=== PATIENT | female | born 1935 | race Caucasian/White ===

== ENCOUNTER → 2023-08-12 07:59 | Outpatient (REF) | payer MEDICARE, BC, SELFPAY | LOC: DHCBC/DCA 07:59 | PROVIDERS: ATTENDING PHYSICIAN Internal Medicine Cardiovascular Disease; FAMILY PHYSICIAN Family Medicine | DX: R06.09 Other forms of dyspnea (principal); I50.32 Chronic diastolic (congestive) heart failure | CPT/HCPCS: 78452; 93017; A9500; J2785 ==

== ENCOUNTER → 2023-10-14 11:57 | Outpatient (REF) | payer MEDICARE, BC, SELFPAY | LOC: RCS 11:57 | PROVIDERS: ATTENDING PHYSICIAN Internal Medicine Cardiovascular Disease; FAMILY PHYSICIAN Family Medicine | DX: R06.09 Other forms of dyspnea (principal); I50.32 Chronic diastolic (congestive) heart failure | CPT/HCPCS: 93306 ==

== ENCOUNTER 2025-03-02 13:43 | Emergency (ER) | payer MEDICARE, BC, SELFPAY ==
[2025-03-02 13:44] VITALS: BP 175/96
[2025-03-02 15:41] VITALS: BMI 34.3
[2025-03-02 15:42] VITALS: BP 163/61
[2025-03-02 16:00] VITALS: BP 149/71
[2025-03-02 16:39] LABS: ALT (SGPT) 140 U/L (0-35); AST (SGOT) 50 U/L (14-36); Albumin 4.1 g/dl (3.5-5.0); Alkaline Phosphatase 186 U/L (38-126); Blood Urea Nitrogen 26 mg/dl (7-17); Calcium 10.3 mg/dl (8.4-10.2); Carbon Dioxide 26 mmol/L (22-30); Chloride 100 mmol/L (98-107); Estimated Creatinine Clearance 36 ml/min; Glucose 152 mg/dl (70-99); Potassium 4.8 mmol/L (3.5-5.1); Sodium 135 mmol/L (135-145); Total Protein 7.2 g/dl (6.3-8.2); eGFR > 60.00
[2025-03-02 16:48] LABS: Troponin I 0.016 ng/ml
[2025-03-02 17:00] VITALS: BP 134/72
[2025-03-02 17:10] LABS: Hematocrit 39.4 % (37.0-47.0); Hemoglobin 12.5 g/dL (12.0-16.0); Mean Corp Hgb Conc. 31.7 g/dL (33.0-37.0); Mean Corpuscular Volume 85.8 fL (81.0-99.0); Platelet Count 329 10^3/uL (130-400)
[2025-03-02 19:32] LABS: Nucleated Red Blood Cells % 0 %
[2025-03-02 19:33] LABS: Anisocytosis 1+; Hypochromasia 1+; Ovalocytes 1+; Poikilocytosis 1+
[2025-03-02 19:41] VITALS: BP 139/56
[2025-03-02] MEDS: LASIX 40 MG IV (19:45)
[2025-03-02 20:00] VITALS: BP 104/55
--- NOTE | 2025-03-02 20:03 | ED.GENMED ---
History of Present Illness
General
Chief Complaint: Swelling
Source: patient and family
Time Seen by Provider: 03/02/25 15:31
History of Present Illness
History of Present Illness:
Note:
CHIEF COMPLAINT(S)
Swelling of the legs and chest discomfort.
HISTORY OF PRESENT ILLNESS
The patient is an 89-year-old female with a history of hypertension and suspected heart failure presenting with swelling in bilateral legs right greater than left. She also admits to a brief sharp chest pain that only lasted seconds and resolved
last night. The leg swelling began approximately one month ago and has been progressively worsening. The patient reports significant difficulty walking due to the swelling and shortness of breath. The chest discomfort occurs at night, lasting until
she changes position, and is described as being on the right side. The patient reports that the discomfort improves when she elevates herself, suggesting positional relief. She experiences mild dyspnea, particularly on exertion, and finds it
difficult to breathe lying completely on her right side. She has been on amlodipine for hypertension management, which may be contributing to the leg swelling.
PAST MEDICAL AND SURGICAL HISTORY
History of severe hypertension and suspected heart failure. Recent dental procedure with the extraction of a tooth.
CHRONIC MEDICAL CONDITIONS SIGNIFICANTLY AFFECTING CARE
Hypertension, suspected heart failure.
SOCIAL DETERMINANTS AFFECTING HEALTH
The patient lives alone which may affect mobility and ability to seek prompt medical care.
MEDICATIONS
The patient is currently on amlodipine and furosemide (Lasix 40 mg). She reports taking Zithromax (azithromycin) recently for a dental issue. Additionally, she has started new medications for geographic atrophy, including Izerv and another
medication called Ilea.
REVIEW OF SYSTEMS
- Respiratory System: Reports dyspnea, particularly on exertion.
- Cardiovascular System: Intermittent chest discomfort, leg swelling primarily on the right side.
- Musculoskeletal System: Difficulty walking due to swelling in the leg.
PHYSICAL EXAM
General: Alert, appears in no acute distress.
Skin: Warm, dry.
Head: Normocephalic, atraumatic.
Neck: Supple, trachea midline.
Eyes, Ears, Nose, and Throat: Oral mucosa moist.
Cardiovascular: Normal peripheral perfusion, no edema noted on examination, notable swelling of the right leg slightly worse than the left.
Respiratory: Respirations are non-labored.
Gastrointestinal: Abdomen nondistended.
Back: Normal range of motion, normal alignment.
Musculoskeletal: Normal range of motion, normal strength; significant swelling in the right leg.
Neurological: Alert and oriented to person, place, time, and situation, no focal neurological deficit observed.
Psychiatric: Cooperative, appropriate mood and affect.
PLAN
1. Perform a chest X-ray to evaluate cardiac and pulmonary status.
2. Conduct an ultrasound of the legs to assess for possible deep vein thrombosis.
3. Obtain laboratory studies, including a BNP to assess for heart failure.
4. Review old medical records to compare previous blood pressure readings and assess the progression of the heart condition.
DIFFERENTIAL DIAGNOSIS
The Differential Diagnosis includes, in no particular order and is not limited to:
1. Congestive heart failure
2. Deep vein thrombosis
3. Pulmonary embolism
4. Peripheral edema due to medications (amlodipine)
5. Chronic venous insufficiency
6. Pneumonia leading to pleuritic chest pain
7. Myocardial ischemia
8. Chronic obstructive pulmonary disease exacerbation
9. Angina pectoris
10. Hypertensive heart disease
CARE-UPDATE
03/02/25 - 19:28
The patients recent examination showed no fluid in the lungs, and BNP levels are less than 500, indicating no immediate heart failure concern. Ultrasound results showed no blood clots, although Bakers cysts are present behind the knees. The initial
heart enzyme test was normal, and a repeat troponin is pending, with an expected normal result. IV Lasix will be administered to help with fluid management, and amlodipine is to be held for about a week to monitor if it contributes to leg swelling.
Kidney function and potassium levels appear normal. The patient will be discharged if the repeat enzyme test is normal, with a follow-up arranged with Dr. Oseguera or Dr. Senatoriali to discuss ongoing management of amlodipine and Lasix treatment.
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
EKG
My independent EKG interpretation is:
- Heart Rate: 102 bpm
- Rhythm: Sinus
- [place]: Normal
- Abnormality: Right bundle branch block
- Abnormality: Non-specific ST-T changes
Disposition:
SUMMARY OF ENCOUNTER
The 89-year-old female patient presented to the emergency department with lower extremity edema. During her visit, a comprehensive evaluation was conducted, including laboratory tests and imaging. The blood work revealed slightly elevated BUN levels
at 26, glucose at 152, with AST and ALT levels at 50 and 140, respectively. The BNP level was reported as negative at 45, and the troponin level was negative at 0.016. Imaging, including an ultrasound of the lower extremities, showed no deep vein
thrombosis, and a chest X-ray confirmed no pulmonary edema. Considering the absence of overt heart failure, the patients condition was assessed as stable for discharge. The management plan included holding the patients amlodipine to evaluate its
potential contribution to the edematous symptoms. An extra dose of intravenous furosemide (Lasix) was administered to manage fluid overload.
DISPOSITION
Discharge
ASSESSMENT
The patients lower extremity edema is likely related to medication-induced peripheral edema from amlodipine, as there is no evidence of heart failure, DVT, or pulmonary complications.
EMERGENCY TREATMENTS ADMINISTERED
An extra dose of intravenous furosemide (Lasix) was administered.
PLAN
The plan includes discontinuing amlodipine temporarily to observe if it resolves the edema, advising follow-up with a blood bank supervisor or primary care physician, referring the patient to a heart failure follow-up hotline, and ensuring the patients
symptoms are managed effectively with diuretics.
INDEPENDENT REVIEW OF LABS AND INTERPRETATION OF TESTS
- My independent review of BMP shows elevated BUN at 26, normal creatinine at 0.9, and elevated glucose at 152.
- My independent review of LFTs indicates AST at 50 and ALT at 140.
- My independent review of BNP indicates a negative result at 45, suggesting no immediate heart failure concern.
- My independent review of troponin shows a negative result at 0.016.
- My independent ultrasound of the lower extremities indicates no deep vein thrombosis.
- My independent chest X-ray interpretation shows no pulmonary edema.
MEDICATION RECONCILIATION
A temporary hold on amlodipine and an additional dose of intravenous furosemide (Lasix) were administered.
MEDICAL DECISION MAKING
1. Number and Complexity of Problems Addressed: Chronic conditions affecting care: Hypertension, suspected heart failure. Differential Diagnoses considered include congestive heart failure, deep vein thrombosis, pulmonary embolism, peripheral edema
due to medications, chronic venous insufficiency, pneumonia, myocardial ischemia, chronic obstructive pulmonary disease exacerbation, angina pectoris, and hypertensive heart disease.
2. Data:
- Category 1:
- My independent review of EKG shows a heart rate of 102 bpm, sinus rhythm, normal axis, right bundle branch block, and non-specific ST-T changes.
- My independent review of laboratory tests: BMP, LFT, BNP, troponin.
- My independent review of imaging: Ultrasound of the lower extremities and chest X-ray.
- Category 3: Discussion of management with cardiology regarding the potential contribution of amlodipine to peripheral edema and subsequent temporary discontinuation.
3. Risk: Prescription medication was prescribed for temporary hold and adjustment in medication to manage symptoms. Care significantly affected by social determinants of health, as the patient lives alone, which may impact her mobility and ability
to access care promptly. Consideration of Admission/Observation: Escalation of care including admission/observation was considered given the complexity and risk of the patients presenting complaint, exam findings, and underlying comorbidities.
However, ultimately, I feel the patient is safe for outpatient management with close follow-up. Reasoning: Work-up reassuring, does not reveal any acute life/organ-threatening processes, patients symptoms well-controlled upon reevaluation,
reexamination reassuring, vitals are stable, patient agreeable with discharge, reliable for follow-up.
DIAGNOSIS
- Peripheral edema, drug-induced (ICD-10: T50.905A)
- Hypertension (ICD-10: I10)
Past History
Past History
ED Past Medical History: HTN, Hypercholesterolemia and NIDDM
ED Past Surgical History: Appendectomy
Social History
Tobacco: Non-smoker
Alcohol: None
Phy Exam
Physical Exam
Physical Exam:
.
Course
Orders/Labs/Results
Orders:
Orders
03/02/25 13:47
Electrocardiogram (*1) Urgent
Reason for Study: Chest Pain
EKG- Treatment ONCE
03/02/25 16:01
US Periph Venous LOWER Ext Franck Urgent
Comment:
Reason For Exam: LE edema, immobility
03/02/25 16:04
CR Chest - 2 Views Urgent
Comment:
Reason For Exam: sob, cp, LE edema
03/02/25 16:08
Complete Blood Count/With Diff Urgent
Comprehensive Metabolic Panel Urgent
NT-proBNP Urgent
Troponin I Urgent
03/02/25 19:08
Furosemide [Lasix] 40 mg IV NOW STA
03/02/25 19:36
Troponin I Urgent
Abnormal Lab Results
03/02/25
16:08
MCHC 31.7 L g/dL
(33.0-37.0)
Abs Immat Gran (auto) 0.1 H 10^3/uL
(0-0.05)
Absolute Neuts (auto) 7.4 H 10^3/uL
(1.4-6.5)
Absolute Monos (auto) 0.7 H 10^3/uL
(0.1-0.6)
Immature Gran % 0.6 H %
(0-0.5)
Lymphocytes % 15.3 L %
(20.5-51.1)
BUN 26 H mg/dl
(7-17)
Glucose 152 H mg/dl
(70-99)
Calcium 10.3 H mg/dl
(8.4-10.2)
AST 50 H U/L
(14-36)
ALT 140 H U/L
(0-35)
Alkaline Phosphatase 186 H U/L
(38-126)
03/02/25 16:08
03/02/25 16:08
Vital Signs
Initial and Last Documented VS:
Initial Vital Signs
Temp Pulse Resp BP Pulse Ox
97.6 F 103 18 175/96 96
03/02/25 13:44 03/02/25 13:44 03/02/25 13:44 03/02/25 13:44 03/02/25 13:44
Last Documented Vital Signs
Temp Pulse Resp BP Pulse Ox
97.6 F 61 21 139/56 97
03/02/25 15:42 03/02/25 19:45 03/02/25 19:45 03/02/25 19:45 03/02/25 19:45
*Pulse Oximetry
SaO2: 97
Oxygen Mode of Delivery: Room air
Patient hypoxic: no
*Critical Care Note
Total Time (30-74mins, 75-104mins- exclusive of procedures): Not Applicable
ED Attending Note
-
Portions of this chart may have been created with voice recognition software.� Occasional wrong word or��sound alike� substitutions may have occurred due to the inherent limitations of voice recognition software.
Discharge Plan
Departure
Patient Disposition: Home (Routine Discharge)
Date of Disposition: 03/02/25
Time of Disposition: 20:08
Patient with high blood pressure during this ER visit?: No
Discharge Problem:
Bilateral edema of lower extremity
Instructions: Dependent Edema (DC), *DCA Heart Failure Instructions
Prescriptions:
No Action
aspirin 81 MG tablet,delayed release (DR/EC)
81 mg PO HS
amlodipine 5 MG tablet
5 mg PO DAILY Qty: 30 6RF
atorvastatin [Lipitor] 20 mg Tablet
20 mg PO DAILY
acetaminophen [Tylenol Arthritis Pain] 650 mg Tablet Extended Release
1,300 mg PO Q12H
furosemide [Lasix] 20 mg Tablet
See Rx Instructions .ROUTE .COMPLEX
Rx Instructions:
20 mg orally
takes , , thursday, thursday
celecoxib 100 mg Capsule
100 mg PO 1XD
lisinopril 40 mg Tablet
40 mg PO HS
meclizine 25 mg tablet
25 mg PO TID PRN (Reason: dizziness) Qty: 10 0RF
Referrals:
UNKNOWN,NO INTERVIEW [Family Provider]
Activity Restrictions/Additional Instructions:
Please hold your amlodipine for now and discuss further use of it with your primary care doctor or blood bank supervisor. Please follow-up with your doctor or cardiology in the next 3 to 5 days for follow-up and reevaluation. Return immediately for
shortness of breath, worsening swelling, changes in mentation, chest pain or any other concerns.
Interventions
Interventions:
*Risk Screen - Suicide Last Done: 03/02/25 13:44
*Neglect/Abuse Screening Last Done: 03/02/25 13:44
*ED- Fall Risk Assessment Last Done: 03/02/25 17:56
*ED COVID-19 Vaccine History Last Done: 03/02/25 17:56
*ED Influenza Vaccine History Last Done: 03/02/25 17:56
ED- Cardiac Assessment Last Done: 03/02/25 15:46
ED- Pulmonary Assessment Last Done: 03/02/25 15:46
ED-Skin Assessment Last Done: 03/02/25 15:46
Discharge Date and Time
Print Language: TELUGU
[2025-03-02 20:24] LABS: Troponin I 0.021 ng/ml
[2025-03-02 20:24] LABS: Normal RBC Morphology No
== END 2025-03-02 21:00 | disposition home or self-care (01) ==
LOC: EMR 13:43
PROVIDERS: EMERGENCY PHYSICIAN Emergency Medicine; FAMILY PHYSICIAN Chiropractor
DX: R60.0 Localized edema (principal); I45.10 Unspecified right bundle-branch block; M71.22 Synovial cyst of popliteal space [Baker], left knee; M71.21 Synovial cyst of popliteal space [Baker], right knee; E11.65 Type 2 diabetes mellitus with hyperglycemia; I10 Essential (primary) hypertension; E78.00 Pure hypercholesterolemia, unspecified; Z79.82 Long term (current) use of aspirin
CPT/HCPCS: 99284; 96374; 71046; 80053; 83880; 84484; 85025; 93005; 93970